=== PATIENT | male | born 1955 | race Caucasian/White ===

== ENCOUNTER 2022-12-12 13:35 | Emergency (ER) | payer OTHER ==
[~2022-12-12] VITALS: Ht 172.7 cm; Wt 108.0 kg
[2022-12-12 13:35] VITALS: BP_SYST 165
[~2022-12-12 13:35] MED LIST: LOSA100T4 PO
--- NOTE | 2022-12-12 13:35 | NUR ---
BROUGHT BACK TO BED IN [place] AND TRIAGED. WILL ASSUME CARE
--- NOTE | 2022-12-12 13:50 | NUR ---
PT STATES HE FEEL BACKWARDS ON 5/5 AND INJURED RIGHT WRIST. STILL HAVING PAIN.
--- NOTE | 2022-12-12 13:52 | NUR ---
XRAYS BEING DONE AT BEDSIDE.
--- NOTE | 2022-12-12 14:38 | NUR ---
DR MEDEL AT BEDSIDE SPEAKING WITH PT.
--- NOTE | 2022-12-12 15:02 | NUR ---
BEDSIDE WITH PT @14:50 FOR SPLINT APPLICATION PER MD RQUEST. CSM WAS WITHIN NORMAL LIMITS, WITH DULL PAIN AND MEDIUM EDEMA. SPLINT APPLIED FIRST APPLICATION WITHOUT INCIDENT SUCESSFULLY. POST APLLICATION CSM WAS WITHIN NORMAL LIMITS. Addendum: 12/12/22 at 1505 by SDEDRE BEDSIDE WITH PT @14:50 FOR SPLINT APPLICATION PER MD RQUEST. CSM WAS WITHIN NORMAL LIMITS, WITH DULL PAIN AND MEDIUM EDEMA. SUGAR TONG SPLINT APPLIED FIRST APPLICATION WITHOUT INCIDENT SUCESSFULLY. POST APLLICATION CSM WAS WITHIN NORMAL LIMITS.
[2022-12-12] MEDS ORDERED: IBUP-1969 PO (15:19)
--- NOTE | 2022-12-12 15:34 | NUR ---
Patient given written and verbal discharge instructions and verbalizes understanding. ER MD discussed with patient the results and treatment provided. Patient in stable condition. ID arm band removed. Rx of IBUPROFEN given. Patient educated on pain management and to follow up with PMD. Pain Scale 0/10. Opportunity for questions provided and answered. Medication side effect fact sheet provided. DISC GIVEN TO PT.
== END 2022-12-12 15:34 | disposition home or self-care (01) ==
LOC: SED 13:35
DX: S52.514A Nondisplaced fracture of right radial styloid process, initial encounter for closed fracture (principal); I10 Essential (primary) hypertension; Z79.899 Other long term (current) drug therapy; W01.0XXA Fall on same level from slipping, tripping and stumbling without subsequent striking against object, initial encounter; Y93.89 Activity, other specified; Y92.89 Other specified places as the place of occurrence of the external cause; Y99.8 Other external cause status
CPT/HCPCS: 99283